=== PATIENT | male | born 1950 | race African-American/Black ===

== ENCOUNTER 2018-03-22 15:51 | Emergency (ER) | payer MEDICARE, OTHER ==
[2018-03-22 16:01] VITALS: BP 134/89; PULSE 78; TEMP 98.2; BMI 29.9
--- NOTE | 2018-03-22 16:02 | PDOC ---
Rapid Medical Evaluation Chief Complaint: Allergic Reaction Time Seen by Provider: 03/22/18 16:01 Medical Evaluation: Allergies Allergy/AdvReac Type Severity Reaction Status Date / Time Iodinated Contrast- Oral and Allergy Verified 03/22/18 15:58 IV Dye Vital Signs Temp Pulse Resp BP Pulse Ox 98.2 F 78 18 134/89 100 03/22/18 15:58 03/22/18 15:58 03/22/18 15:58 03/22/18 15:58 03/22/18 15:58 I have performed a brief in-person evaluation of this patient. The patient presents with a chief complaint of: after having IV contrast for outpatient CT scan of abd/pelvis he developed a rash on both arms, chest, back and neck Pertinent physical exam findings: hives on b/l arms and neck. No angioedema I have ordered the following: nothing The patient will proceed to the ED for further evaluation Discharge Disposition - Diagnosis Allergic reaction - Referrals - Patient Instructions - Post Discharge Activity
[2018-03-22] MEDS ORDERED: FAMOTIDINE 20 MG/50 ML IVPB 20 MG/50 ML MG IVPB ONE ×2 (16:06→16:08)
[2018-03-22] MEDS ORDERED: SODIUM CHLORIDE 1,000 ML IV STA (16:06)
[2018-03-22] MEDS ORDERED: predniSONE 20 MG TABLET (UD) PO ONE (16:06)
[2018-03-22] MEDS ORDERED: predniSONE 20 MG TABLET (UD) ONE (16:07)
--- NOTE | 2018-03-22 16:10 | PDOC ---
History of Present Illness - General History Source: Patient Exam Limitations: No Limitations - History of Present Illness Initial Comments: 03/22/18 16:17 The patient is 68 year old male, with a significant past medical history of hypertension, hyperlipidemia, CVA(with residual left lower extremity weakness) , who presents to the emergency department with allergic reaction prior to presentation. Patient was in an outpatient office receiving IV contrast for a routine CAT scan. After receiving IV contrast patient reports he developed hives diffusely. He endorses throat itching, but denies any difficulty breathing , tongue swelling, wheezing, abdominal pain, nausea, or vomiting. He denies any chest pain, shortness of breath, diaphoresis, palpitations, lightheadedness, or syncope. He denies any recent travel or sick contacts. Allergies: IV contrast Past Surgical History: None reported Social History: Current everyday smoker. Social ETOH use. No recreational drug <Sree Maradiaga - Last Filed: 03/22/18 16:17> - General History Source: Patient Exam Limitations: No Limitations <Jerrod Ward - Last Filed: 03/22/18 18:03> - General Chief Complaint: Allergic Reaction Stated Complaint: ALLERGIC REACTION Time Seen by Provider: 03/22/18 16:01 Past History <Sree Maradiaga - Last Filed: 03/22/18 16:17> - Past Medical History Anemia: No Asthma: No Cancer: No Cardiac Disorders: No CVA: Yes (left le weakness 2012) COPD: No CHF: No Dementia: No Diabetes: No GI Disorders: No Disorders: No HTN: Yes Hypercholesterolemia: Yes Liver Disease: No Seizures: No Thyroid Disease: No - Suicide/Smoking/Psychosocial Hx Smoking History: Current every day smoker Have you smoked in the past 12 months: Yes Number of Cigarettes Smoked Daily: 15 Information on smoking cessation initiated: Yes 'Breaking Loose' booklet given: 03/22/18 Hx Alcohol Use: Yes (6beers/wkend) Drug/Substance Use Hx: No Substance Use Type: Alcohol Hx Substance Use Treatment: No <Jerrod Ward - Last Filed: 03/22/18 18:03> - Past Medical History Allergies/Adverse Reactions: Allergies Allergy/AdvReac Type Severity Reaction Status Date / Time Iodinated Contrast- Oral and Allergy Verified 03/22/18 15:58 IV Dye Home Medications: Ambulatory Orders Amlodipine Besylate [Norvasc -] 2.5 mg PO DAILY 07/13/16 Aspirin [ASA -] 81 mg PO DAILY 07/13/16 Atorvastatin Ca [Lipitor] 20 mg PO HS 07/13/16 Hydrochlorothiazide [Hctz -] 25 mg PO DAILY 07/13/16 Tamsulosin HCl [Flomax] 0.4 mg PO DAILY 07/13/16 Diphenhydramine HCl [Benadryl -] 25 mg PO Q6H PRN #28 capsule 03/22/18 EPINEPHrine (EPI-PEN 0.3MG) [Epipen 0.3MG -] 0.3 mg IM ASDIR PRN #2 pens Prednisone [Deltasone] 60 mg PO DAILY #12 tablet 03/22/18 Review of Systems - Review of Systems Able to Perform ROS?: Yes Comments:: 03/22/18 16:17 GENERAL/CONSTITUTIONAL: No fever or chills. No weakness. HEAD, EYES, EARS, NOSE AND THROAT: +Itchy throat. No change in vision. No ear pain or discharge. CARDIOVASCULAR: No chest pain or shortness of breath. RESPIRATORY: No cough, wheezing, or hemoptysis. GASTROINTESTINAL: No nausea, vomiting, diarrhea or constipation. GENITOURINARY: No dysuria, frequency, or change in urination. MUSCULOSKELETAL: No joint or muscle swelling or pain. No neck or back pain. SKIN: No rash NEUROLOGIC: No headache, vertigo, loss of consciousness, or change in strength/ sensation. ENDOCRINE: No increased thirst. No abnormal weight change. HEMATOLOGIC/LYMPHATIC: No anemia, easy bleeding, or history of blood clots. ALLERGIC/IMMUNOLOGIC: +Diffuse hives and skin allergy. <Sree Maradiaga - Last Filed: 03/22/18 16:17> *Physical Exam - Vital Signs Last Vital Signs Temp Pulse Resp BP Pulse Ox 98.2 F 78 18 134/89 100 03/22/18 15:58 03/22/18 15:58 03/22/18 15:58 03/22/18 15:58 03/22/18 15:58 - Physical Exam Comments: 03/22/18 16:18 GENERAL: Awake, alert, and fully oriented, in no acute distress HEAD: No signs of trauma EYES: PERRLA, EOMI, sclera anicteric, conjunctiva clear ENT: Auricles normal inspection, hearing grossly normal, nares patent, oropharynx clear without exudates. Moist mucosa NECK: Normal ROM, supple, no lymphadenopathy, JVD, or masses LUNGS: Breath sounds equal, clear to auscultation bilaterally. No wheezes, and no crackles HEART: Regular rate and rhythm, normal S1 and S2, no murmurs, rubs or gallops ABDOMEN: Soft, nontender, normoactive bowel sounds. No guarding, no rebound. No masses EXTREMITIES: Normal range of motion, no edema. No clubbing or cyanosis. No cords, erythema, or tenderness NEUROLOGICAL: Cranial nerves II through XII grossly intact. Normal speech, normal gait SKIN: Diffuse urticaria on upper extremities, chest, and back. Warm, Dry, normal turgor. <Sree Maradiaga - Last Filed: 03/22/18 16:17> - Vital Signs Last Vital Signs Temp Pulse Resp BP Pulse Ox 98.2 F 78 18 134/89 100 03/22/18 15:58 03/22/18 15:58 03/22/18 15:58 03/22/18 15:58 03/22/18 15:58 <Jerrod Ward - Last Filed: 03/22/18 18:03> Medical Decision Making - Medical Decision Making 03/22/18 16:08 A portion of this note was documented by scribe services under my direction. I have reviewed the details of the note, within reason, and agree with the documentation with the following case summary and management plan written by me. Patient treated in the ED. Nursing notes are reviewed and incorporated into the medical decision-making. Vital signs reviewed. Peripheral IV access obtained by the nurse, laboratory studies are drawn and sent, reviewed and interpreted by myself. Vital Signs Temp Pulse Resp BP Pulse Ox 98.2 F 78 18 134/89 100 03/22/18 15:58 03/22/18 15:58 03/22/18 15:58 03/22/18 15:58 03/22/18 15:58 68-year-old male patient with history of hypertension presents with ALLERGIC reaction. The patient was undergoing a routine outpatient CAT scan with IV contrast. After receiving IV contrast, he developed urticaria diffusely throughout the body. Denies difficulty breathing, wheezing, abdominal pain, chest pain, lightheadedness or syncope. Patient does report some throat itching sensation but otherwise has no other complaints. The patient has having an ALLERGIC reaction to IV contrast. We'll initiate IV Benadryl, IV Pepcid, IV fluids, prednisone. We'll observe the patient and reassess. 03/22/18 17:59 The patient has been observed and the urticaria had cleared. The patient really would like to go home. After discussion, will allow the patient to go home. I advised the patient to complete the steroids. Return precautions given including reocurrence of allergic reaction. Will prescribe epi-pen. I reinforced to the patient that he is allergic to IV contrast. He verbalizes understanding and agrees with plan. I discussed the physical exam findings, ancillary test results and final diagnoses with the patient. I answered all of the patient's questions. The patient was satisfied with the care received and felt comfortable with the discharge plan and treatment plan. The patient will call their primary care physician within 24 hours to arrange follow-up and will return to the Emergency Department with any new, persistant or worsening symptoms. <Jerrod Ward - Last Filed: 03/22/18 18:03> *DC/Admit/Observation/Transfer - Attestations Scribe Attestion: 03/22/18 16:18 Documentation prepared by Sree Maradiaga, acting as diagnostic medical sonographer for Jerrod Ward MD. <Sree Maradiaga - Last Filed: 03/22/18 16:17> - Discharge Dispostion Decision to Admit order: No <Jerrod Ward - Last Filed: 03/22/18 18:03> Diagnosis at time of Disposition: Allergic reaction Qualifiers: Encounter type: initial encounter Qualified Code(s): T78.40XA - Allergy, unspecified, initial encounter - Discharge Dispostion Disposition: HOME Condition at time of disposition: Good - Prescriptions Prescriptions: Diphenhydramine HCl [Benadryl -] 25 mg PO Q6H PRN #28 capsule PRN Reason: Rash EPINEPHrine (EPI-PEN 0.3MG) [Epipen 0.3MG -] 0.3 mg IM ASDIR PRN #2 pens PRN Reason: Anaphylaxis Prednisone [Deltasone] 60 mg PO DAILY #12 tablet - Patient Instructions Printed Discharge Instructions: DI for Adverse Drug Reaction -- Allergic Additional Instructions: You are allergic to IV contrast. Please take 25 mg benadryl every 6 hours as needed for rash. Please complete the prednisone (60 mg) daily for the next 4 days. If you have any difficulty breathing or anaphylaxis, please use the epi-pen and return to the ER. Follow up with your doctor.
== END 2018-03-22 18:05 | disposition home or self-care (01) ==
LOC: JER 15:51
PROC: 3E033GC Introduction of Other Therapeutic Substance into Peripheral Vein, Percutaneous Approach (ICD-10-PCS; principal; 2018-03-22)
PROC: 3E033GC Introduction of Other Therapeutic Substance into Peripheral Vein, Percutaneous Approach (ICD-10-PCS; 2018-03-22)
DX: L50.0 Allergic urticaria (principal); T50.8X5A Adverse effect of diagnostic agents, initial encounter; I10 Essential (primary) hypertension; E78.5 Hyperlipidemia, unspecified; E78.00 Pure hypercholesterolemia, unspecified; F17.210 Nicotine dependence, cigarettes, uncomplicated; I69.854 Hemiplegia and hemiparesis following other cerebrovascular disease affecting left non-dominant side; I25.2 Old myocardial infarction; Z79.82 Long term (current) use of aspirin
CPT/HCPCS: 96365; 96375; 99281-25; J7030